=== PATIENT | female | born 1980 | race Caucasian/White ===

== ENCOUNTER → 2016-12-16 | Outpatient (CLI) | payer BC | END | disposition home or self-care (01) | LOC: C.PAPS 16:18 | PROVIDERS: ATTEND Physician Assistant | DX: Z01.419 Encounter for gynecological examination (general) (routine) without abnormal findings (principal) ==

== ENCOUNTER → 2017-09-22 | Outpatient (CLI) | payer OTHER | END | disposition home or self-care (01) | LOC: C.LAB1850 09:29 | PROVIDERS: ATTEND Obstetrics & Gynecology | DX: N91.2 Amenorrhea, unspecified (principal) ==

== ENCOUNTER 2019-07-23 07:40 | Inpatient (IN) ==
[2019-07-23] MEDS ORDERED: OXYTOCIN 30 UNITS/500 ML BAG IV PRN ×3 (07:59→18:34)
[2019-07-23 08:36] LABS: Hematocrit (blood only) 33.1 % (37-47); Hemoglobin 11.6 g/dL (12.0-16.0); Mean Corpuscular Volume 91.2 fL (80-100); RDW Coefficient of Variation 13.9 % (11.5-14.5); RDW Standard Deviation 45.4 fL (36.4-46.3); Red Blood Count 3.63 M/uL (4.2-5.4); White Blood Count 7.57 K/uL (4.8-10.8)
[2019-07-23 09:04] LABS: Mean Platelet Volume 11.1 fL (7.4-10.4); Platelet Count 98 K/uL (130-400)
[2019-07-23 09:07] LABS: Platelet Estimate Decreased (Normal)
[2019-07-23] MEDS: LACTATED RINGER'S 1,000 ML IV PRN ×3 (09:09→17:03)
--- NOTE | 2019-07-23 09:21 | History & Physical Report ---
Date of Service July 23, 2019 Assessment & Plan (1) : 38 yo @ 39.1 here for IOL complicated by supervision of elderly multigravida, thrombocytopenia, and elevated blood pressure - admits, IV, labs - Pitocin, continue to augment as needed Labs: GBS negative, Rh - SVE: 3cm, 50%, -2, mid, moderate Elevated BP @ 165/91 - CMP - continue to monitor Thrombocytopenia - platelet counts this AM Fetus - FHTS: category 1 - continue monitoring - EFW: 7-8 lbs History of Present Illness Chief Complaint: IOL Primary Care Provider: Justin Cuenca MD Magy Teran is a 38 year old at 39 weeks 1 day complicated by supervision of elderly multigravida with history of thrombocytopenia. She has baseline low platelets at around 120. She had low platelets with her son who is 9 years old and mildly low platelets with her daughter who is 11 years old. She is taking iron for anemia. She was also taking Prilosec for reflux which has been well controlled and stopped taking medication one week prior. She had some pain in her right upper quadrant that is lightning seven like, tender to palpation and occurs when she is rolling. She has had contractions that started to increase last night. She has not had loss of fluid. She did have some bleeding since last week for one day that has resolved. She lost some mucus. She has good movement. She plans to breastfeed. pSHx.: wisdom teeth, tonsils Meds.: PNV, iron, Prilosec @ 1 week Allergies: denies Allergies Allergy/AdvReac Type Severity Reaction Status Date / Time No Known Drug Allergies Allergy Verified 07/17/19 09:02 Home Medications Home Medications Medication Instructions Recorded Confirmed Type PNV cmb#95-ferrous fumarate-FA 1 tab PO DAILY 07/23/19 07/23/19 History [] ferrous sulfate [iron] 325 mg PO DAILY 07/23/19 07/23/19 History omeprazole magnesium [Prilosec OTC] 20 mg PO DAILY 07/23/19 07/23/19 History Patient History Medical History Encounter for anatomic survey (Inactive) History of thrombocytopenia Surgical History S/P tonsillectomy S/P wisdom tooth extraction Family History Mother Diabetes Heart disease Father Heart disease Hypertension Dyslipidemia Kidney disease Thrombocytopenia Social History Preferred Language: Chinese 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 Feels Safe at Home: Yes Safety Concerns: Feels Safe At This Time Smoking Status: Never smoker Hx Alcohol Use: No Hx Substance Use: No OB History - 10 yo female term complicated by platelet count of 60,000. Vaginal delivery. - 8 yo male uncomplicated term vaginal delivery Review of Systems Denies fever, chills, sweats Denies shortness of breath, difficulty breathing, chest pain, palpitations, chest pressure. Denies dysuria. Denies headache. Denies: double vision, lower extremity swelling Physical Exam Physical Exam: General: Alert, oriented. No acute distress. Cardiac: Regular rate and rhythm, no murmurs/rubs/gallops. Respiratory: Clear to auscultation anterior and posteriorly, no wheezes/rales/rhonchi. No increased work of breathing. Symmetrical chest rise. No respiratory distress. Abdomen: Gravid, Vertex, Bowel sounds present. Lower Extremities: No lower extremity edema or swelling. No deep calf pain. Dunia's negative bilaterally. SVE: 3cm, 50%, -2, mid, moderate Results & Data Vital Signs (Past 12 Hours) Vital Signs Temp Pulse Resp BP 07/23/19 09:08 97 H 142/92 H 07/23/19 08:52 89 144/94 H 07/23/19 07:59 36.7 C 85 20 139/86 07/23/19 07:49 36.7 C 85 20 139/86 Monitoring External Monitor Category 1 - baseline rate 150 - moderate variability - no early decelerations, no late decelerations, no variable decelerations Tocometry - contractions q3-4 minutes Supervising Physician Co-Signing Physician Notes Resident Physician Supervision Note: I interviewed and examined the patient. Discussed with Dr. Doe and agree with findings and plan as documented in the note. Any exceptions or clarifications are listed here: Patient is a 38yowf with iup at 39 + weeks who presents for elective induction. Has hx of gestational TCP in previous two pregnancies. Patient desires controlled induction. complicated by ama with reassuring testing. Fetus category one. Cervix favorable. Pitocin induction, then arom. plts are 98K today and spoke with anesthesia who is ok with proceeding with epidural. Anticipate . Documented By: Yolanda Loera MD, FACOG Resident Activity Tracking Resident Involvement: Resident Care Provided Care Provided: OB Delivery
[2019-07-23 10:05] LABS: Albumin Level 2.6 gm/dl (3.4-5.0); BUN Creatinine Ratio 11.8 (10-20); Bilirubin,Total 0.4 mg/dl (0.2-1); Calcium 8.7 mg/dl (8.5-10.1); Creatinine Clr Calc Pharmacy 106.7 ml/min; Est GFR (African American) 118.3; Est GFR (Non-African American) 102.1; Potassium 3.6 mmol/L (3.5-5.1)
[2019-07-23 10:07] LABS: Albumin Globulin Ratio 0.7 (0.9-2); Globulin 3.6 gm/dl (2.5-4.0); Total Protein 6.2 gm/dl (6.4-8.2)
[2019-07-23] MEDS ORDERED: fentaNYL citrate 100 MCG/2 ML VIAL ONE (11:50)
[2019-07-23] MEDS ORDERED: BUPIVACAINE 0.25% 30 ML VIAL ONE (11:50)
[2019-07-23] MEDS ORDERED: ePHEDrine sulfate 50 MG/ML AMP ONE (11:50)
[2019-07-23] MEDS ORDERED: fentaNYL 2MCG/ML ROPIV 1.25MG/ML 100 ML BAG EPI ONE (11:51)
--- NOTE | 2019-07-23 12:10 | Anesthesiology Consultation ---
Date of Service July 23, 2019 Assessment & Plan (1) Encounter for pre-operative examination: Chart Review Chart Review: Acceptable Risk for Labor Epidural History Height/Weight Height: 5 ft 9 in Weight: 78.018 kg Allergies Allergy/AdvReac Type Severity Reaction Status Date / Time No Known Drug Allergies Allergy Verified 07/17/19 09:02 Medications Home Medications Medication Instructions Recorded Confirmed Last Taken PNV cmb#95-ferrous fumarate-FA 1 tab PO DAILY 07/23/19 07/23/19 07/23/19 07:00 [] ferrous sulfate [iron] 325 mg PO DAILY 07/23/19 07/23/19 07/22/19 20:00 omeprazole magnesium [Prilosec OTC] 20 mg PO DAILY 07/23/19 07/23/19 07/16/19 08:00 Active Medications Generic Name Dose Route Start Last Admin Trade Name Freq PRN Reason Stop Dose Admin Lactated Ringer's 1,000 mls @ 125 mls/hr 07/23/19 07:59 07/23/19 09:09 Lr IV 07/25/19 07:58 125 mls/hr .Q8H PRN Administration L&D Protocol Protocol Oxytocin 30 units in 500 mls @ 8 mls/hr 07/23/19 07:59 07/23/19 11:20 Pitocin IV 07/25/19 07:58 0.48 units/hr .Q24H PRN 8 mls/hr Labor Induction/Augmentation Titration Protocol 0.48 UNITS/HR Past Medical History Medical History Encounter for anatomic survey (Inactive) History of thrombocytopenia Past Family History Family History Mother Diabetes Heart disease Father Heart disease Hypertension Dyslipidemia Kidney disease Thrombocytopenia Past Surgical History Surgical History S/P tonsillectomy S/P wisdom tooth extraction Social History Smoking Status: Never smoker Hx Alcohol Use: No Hx Substance Use: No Physical Exam Vital Signs Last Vital Signs Temp 36.7 C 07/23/19 07:59 Pulse 75 07/23/19 10:53 Resp 20 07/23/19 10:53 BP 129/78 07/23/19 10:53 Testing Laboratory Results 07/23/19 08:14 07/23/19 09:13
[2019-07-23] MEDS ORDERED: ATROPINE SULFATE 0.1 MG/ML 10ML SYR IV PRN (12:38)
[2019-07-23] MEDS ORDERED: ePHEDrine sulfate 50 MG/ML AMP IV PRN ×2 (12:38)
[2019-07-23] MEDS ORDERED: NALOXONE HCL 1 MG in SODIUM CHLORIDE 0.9% 1000ML 1,000 ML IV PRN (12:38)
[2019-07-23] MEDS ORDERED: NALOXONE HCL 0.4 MG/1 ML VIAL/CARP IV PRN (12:38)
[2019-07-23] MEDS ORDERED: fentaNYL 2MCG/ML ROPIV 1.25MG/ML 100 ML BAG EPI PRN (12:38)
[2019-07-23] MEDS ORDERED: ONDANSETRON INJ 2 MG/ML 2 ML VIAL IV PRN (12:38)
--- NOTE | 2019-07-23 13:43 | Labor Progress Brief Note ---
Date of Service July 23, 2019 Subjective comfortable with epidural Assessment & Plan (1) Supervision of elderly multigravida: continue current plan, fetus category one. anticipate . Physical Exam Constitutional: WD/WN, vitals as above Psychiatric: A+Ox3, euthymic affect Genitourinary: cx--3.5/75/-2 arom--copious clear toco--q2-4min, pit at 4 efm--125 with mod variability, accels to 150s, no decels Results & Data Vital Signs (Past 12 Hours) Vital Signs Temp Pulse Resp BP Pulse Ox 07/23/19 13:34 82 100 07/23/19 13:32 77 137/88 07/23/19 13:29 68 100 07/23/19 13:24 84 97 07/23/19 13:19 71 100 07/23/19 13:14 84 100 07/23/19 13:12 74 156/88 H 07/23/19 13:10 69 89 L 07/23/19 13:09 66 99 07/23/19 13:07 78 142/82 H 07/23/19 13:04 71 100 07/23/19 13:02 68 141/80 H 07/23/19 12:59 83 100 07/23/19 12:57 71 144/77 H 07/23/19 12:54 76 100 07/23/19 12:51 77 152/84 H 07/23/19 12:49 78 100 07/23/19 12:48 86 165/88 H 07/23/19 12:45 75 140/83 07/23/19 12:44 84 100 07/23/19 12:42 78 147/91 H 07/23/19 12:39 81 145/82 H 100 07/23/19 12:36 72 150/84 H 07/23/19 12:34 68 100 07/23/19 12:33 68 155/86 H 07/23/19 12:29 73 100 07/23/19 12:24 74 100 07/23/19 12:19 69 99 07/23/19 10:53 75 20 129/78 07/23/19 10:24 76 154/91 H 07/23/19 09:53 75 20 159/90 H 07/23/19 09:39 81 150/91 H 07/23/19 09:24 81 165/91 H 07/23/19 09:08 97 H 142/92 H 07/23/19 08:52 89 20 144/94 H 07/23/19 07:59 36.7 C 85 20 139/86 07/23/19 07:49 36.7 C 85 20 139/86 Coding Level of Care Code None Diagnoses Supervision of elderly multigravida O09.529
--- NOTE | 2019-07-23 15:20 | Labor Progress Brief Note ---
Date of Service July 23, 2019 Subjective comfortable Assessment & Plan (1) Elective induction of labor planned: Fetus category 2, but very reassuring. Suspect going to go pretty quickly at this point. Will continue to monitor closely. anticipate . Physical Exam Constitutional: WD/WN, vitals as above Psychiatric: A+Ox3, euthymic affect Genitourinary: cx--5/90/-2, tight against cervix toco--q2-3min, pit at 12 efm--130s with mod variability, early/variables with some contractions Results & Data Vital Signs (Past 12 Hours) Vital Signs Temp Pulse Resp BP Pulse Ox 07/23/19 15:11 76 100 07/23/19 15:07 72 92 07/23/19 15:06 72 96 07/23/19 15:03 65 138/85 07/23/19 15:01 64 100 07/23/19 14:56 67 100 07/23/19 14:53 64 90 07/23/19 14:51 79 99 07/23/19 14:48 75 137/85 07/23/19 14:46 68 100 07/23/19 14:41 70 100 07/23/19 14:40 83 92 07/23/19 14:36 69 100 07/23/19 14:32 66 160/91 H 88 L 07/23/19 14:31 67 100 07/23/19 14:26 69 100 07/23/19 14:21 72 100 07/23/19 14:19 73 87 L 07/23/19 14:18 65 133/80 07/23/19 14:16 66 99 07/23/19 14:11 69 100 07/23/19 14:06 74 100 07/23/19 14:01 69 125/81 100 07/23/19 13:56 69 100 07/23/19 13:51 68 100 07/23/19 13:49 65 123/77 07/23/19 13:46 65 100 07/23/19 13:41 68 100 07/23/19 13:34 82 100 07/23/19 13:32 77 137/88 07/23/19 13:29 68 100 07/23/19 13:24 84 97 07/23/19 13:19 71 100 07/23/19 13:14 84 100 07/23/19 13:12 74 156/88 H 07/23/19 13:10 69 89 L 07/23/19 13:09 66 99 07/23/19 13:07 78 142/82 H 07/23/19 13:04 71 100 07/23/19 13:02 68 141/80 H 07/23/19 12:59 83 100 07/23/19 12:57 71 144/77 H 07/23/19 12:54 76 100 07/23/19 12:51 77 152/84 H 07/23/19 12:49 78 100 07/23/19 12:48 86 165/88 H 07/23/19 12:45 75 140/83 07/23/19 12:44 84 100 07/23/19 12:42 78 147/91 H 07/23/19 12:39 81 145/82 H 100 07/23/19 12:36 72 150/84 H 07/23/19 12:34 68 100 07/23/19 12:33 68 155/86 H 07/23/19 12:29 73 100 07/23/19 12:24 74 100 07/23/19 12:19 69 99 07/23/19 10:53 75 20 129/78 07/23/19 10:24 76 154/91 H 07/23/19 09:53 75 20 159/90 H 07/23/19 09:39 81 150/91 H 07/23/19 09:24 81 165/91 H 07/23/19 09:08 97 H 142/92 H 07/23/19 08:52 89 20 144/94 H 07/23/19 07:59 36.7 C 85 20 139/86 07/23/19 07:49 36.7 C 85 20 139/86 Coding Level of Care Code None Diagnoses Elective induction of labor planned
--- NOTE | 2019-07-23 17:12 | Labor Progress Brief Note ---
Date of Service July 23, 2019 Subjective starting to feel some contractions Assessment & Plan (1) Elective induction of labor planned: Moving nicely, fetus reassuring. will redose epidural so she can labor down. anticipate . Physical Exam Constitutional: WD/WN, vitals as above Psychiatric: A+Ox3, euthymic affect Genitourinary: cx--ant lip, 0 bloody show toco--q2min, pit at 12 efm--140s with mod variability, occasional early Results & Data Vital Signs (Past 12 Hours) Vital Signs Temp Pulse Resp BP Pulse Ox 07/23/19 17:06 89 97 07/23/19 17:02 79 157/89 H 07/23/19 17:01 74 100 07/23/19 16:56 81 100 07/23/19 16:51 75 100 07/23/19 16:46 80 153/98 H 100 07/23/19 16:41 72 100 07/23/19 16:36 71 100 07/23/19 16:33 71 149/87 H 07/23/19 16:31 80 100 07/23/19 16:26 70 100 07/23/19 16:21 73 100 07/23/19 16:16 70 144/87 H 100 07/23/19 16:11 70 100 07/23/19 16:06 70 100 07/23/19 16:03 67 146/86 H 07/23/19 16:01 68 100 07/23/19 15:56 67 100 07/23/19 15:51 65 100 07/23/19 15:49 91 H 91 07/23/19 15:46 70 144/88 H 100 07/23/19 15:41 69 100 07/23/19 15:36 63 100 07/23/19 15:32 36.6 C 67 20 144/83 H 07/23/19 15:31 66 100 07/23/19 15:26 69 100 07/23/19 15:21 67 100 07/23/19 15:19 73 158/86 H 94 07/23/19 15:16 76 94 07/23/19 15:11 76 100 07/23/19 15:07 72 92 07/23/19 15:06 72 96 07/23/19 15:03 65 138/85 07/23/19 15:01 64 100 07/23/19 14:56 67 100 07/23/19 14:53 64 90 07/23/19 14:51 79 99 07/23/19 14:48 75 137/85 07/23/19 14:46 68 100 07/23/19 14:41 70 100 07/23/19 14:40 83 92 07/23/19 14:36 69 100 07/23/19 14:32 66 160/91 H 88 L 07/23/19 14:31 67 100 07/23/19 14:26 69 100 07/23/19 14:21 72 100 07/23/19 14:19 73 87 L 07/23/19 14:18 65 133/80 07/23/19 14:16 66 99 07/23/19 14:11 69 100 07/23/19 14:06 74 100 07/23/19 14:01 69 125/81 100 07/23/19 13:56 69 100 07/23/19 13:51 68 100 07/23/19 13:49 65 123/77 07/23/19 13:46 65 100 07/23/19 13:41 68 100 07/23/19 13:34 82 100 07/23/19 13:32 77 137/88 07/23/19 13:29 68 100 07/23/19 13:24 84 97 07/23/19 13:19 71 100 07/23/19 13:14 84 100 07/23/19 13:12 74 156/88 H 07/23/19 13:10 69 89 L 07/23/19 13:09 66 99 07/23/19 13:07 78 142/82 H 07/23/19 13:04 71 100 07/23/19 13:02 68 141/80 H 07/23/19 12:59 83 100 07/23/19 12:57 71 144/77 H 07/23/19 12:54 76 100 07/23/19 12:51 77 152/84 H 07/23/19 12:49 78 100 07/23/19 12:48 86 165/88 H 07/23/19 12:45 75 140/83 07/23/19 12:44 84 100 07/23/19 12:42 78 147/91 H 07/23/19 12:39 81 145/82 H 100 07/23/19 12:36 72 150/84 H 07/23/19 12:34 68 100 07/23/19 12:33 68 155/86 H 07/23/19 12:29 73 100 07/23/19 12:24 74 100 07/23/19 12:19 69 99 07/23/19 10:53 75 20 129/78 07/23/19 10:24 76 154/91 H 07/23/19 09:53 75 20 159/90 H 07/23/19 09:39 81 150/91 H 07/23/19 09:24 81 165/91 H 07/23/19 09:08 97 H 142/92 H 07/23/19 08:52 89 20 144/94 H 07/23/19 07:59 36.7 C 85 20 139/86 07/23/19 07:49 36.7 C 85 20 139/86 Coding Level of Care Code None Diagnoses Elective induction of labor planned
--- NOTE | 2019-07-23 18:19 | Delivery Summary ---
Vaginal Delivery Summary Date of Service July 23, 2019 Vaginal Delivery Summary Pre-operative Diagnosis: at 39 weeks elective induction gestational tcp ama Post-operative Diagnosis: same bradycardia with pushing and slow return to baseline Procedure: pitocin induction epidural arom vavd second degree laceration with repair EBL: 300cc Anesthesia: epidural Procedure: The patient pushed with good effort from +2 station. There was bradycardia to the 60s with several contractions. So decision was made for outlet vacuum. Explained to the patient and verbal consent obtained. The patient pushed for to deliver a viable male infant in lesa position. The was then delivered without difficulty. The baby was vigorous. The nose and mouth were bulb suctioned and the infant was placed in the maternal abdomen for drying and attention. Cord was clamped and cut at one minute of life. Cord blood and segment obtained. Placenta delivered spontaneous, intact with a three vessel cord. Cervix/sulci/rectum were intact. A second degree perineal laceration was repaired in the normal standard fashion. Hemostasis obtained with dilute pitocin and fundal massage. Apgars were 8/9. Mother and baby doing well at the end of the delivery. [facility] Vaginal Delivery Charge Vaginal Delivery Codes: 72331 global code for the antepartum, delivery, and post-
[2019-07-23] MEDS ORDERED: HYDROCORTISONE ACETATE 25 MG SUPP PR PRN (18:34)
[2019-07-23] MEDS ORDERED: OXYCODONE/ACETAMINOPHEN 5mg/325mg TAB PO PRN (18:34)
[2019-07-23] MEDS ORDERED: DIPHTHERIA/TETANUS/PERTUSSIS 0.5 ML SYR/VIAL IM ONE (18:34)
[2019-07-23] MEDS ORDERED: ACETAMINOPHEN 325 MG TAB PO PRN (18:34)
[2019-07-23] MEDS ORDERED: BENZOCAINE 20% AER SPR 82.5 GM CAN EXT PRN (18:34)
[2019-07-23] MEDS ORDERED: bisacodyL 10 MG SUPP PR PRN (18:34)
[2019-07-23] MEDS ORDERED: SUPERCREAM 0.870% 15 GM JAR EXT PRN (18:34)
--- NOTE | 2019-07-23 18:35 | Anesthesia Procedure Note ---
Date of Service July 23, 2019 Anesthesia Post Epidural Note Vital Signs Vital Signs: Temp Pulse Resp BP Pulse Ox 36.6 C 96 H 20 131/80 100 07/23/19 15:32 07/23/19 18:32 07/23/19 15:32 07/23/19 18:32 07/23/19 17:56 Pain Intensity Bilateral Abdomen: Pain Intensity: 5 Notes Mental Status: alert / awake / arousable and participated in evaluation Nausea / Vomiting: adequately controlled Pain: adequately controlled Airway Patency, RR, SpO2: stable & adequate BP & HR: stable & adequate Hydration State: stable & adequate Neuraxial Anesthesia: was administered and sensory block is resolving Anesthetic Complications: no major complications apparent Epidural: Removed without complications and With tip intact
[2019-07-23] MEDS: DOCUSATE SODIUM 100 MG CAP PO SCH (21:00)
[2019-07-23] MEDS: IBUPROFEN 600 MG TAB PO PRN (21:46)
[2019-07-24] MEDS: IBUPROFEN 600 MG TAB PO PRN ×4 (02:07→16:23)
[2019-07-24 05:52] LABS: Hematocrit (blood only) 32.8 % (37-47); Hemoglobin 11.2 g/dL (12.0-16.0)
--- NOTE | 2019-07-24 06:19 | Obstetrical Progress Note ---
Date of Service July 24, 2019 Assessment & Plan Admission and Anticipated Discharge Date Admission Date: July 23, 2019 38 yo s/p elective induced VD w/ outlet vacuum for non reassuring heart tones; complicated by AMA and thrombocytopenia w/ platelets prior to delivery of 98 - PPD# 1 - GBS -, Rh -, baby A- - Feels well today. Eating well, voiding well, ambulating well. - Pain well controlled. - Routine post care - After discharge will have 6 week followup with Luz Maria. Supervising Physician Co-Signing Physician Notes Resident Physician Supervision Note: I interviewed and examined the patient. Discussed with Dr. Doe and agree with findings and plan as documented in the note. Any exceptions or clarifications are listed here: PPD 1 doing well. Desires d/c home later today. d/c instructions reviewed. Documented By: Yolanda Loera MD, FACOG Subjective Magy Teran is doing well this morning, she is walking, voiding, passing gas and eating a regular diet w/o nausea or vomiting. Bleeding is more than a heavy period. is going, "good". pain is 2/10. She did not have any questions this morning. Review of Systems Review of Systems: Denies fever, chills, sweats Denies shortness of breath, difficulty breathing, chest pain, palpitations, chest pressure. Denies breast pain. Denies dysuria. Denies headache. Physical Exam Physical Exam: General: Alert, oriented. No acute distress. Cardiac: Regular rate and rhythm, no murmurs/rubs/gallops. Respiratory: Clear to auscultation anterior and posteriorly, no wheezes/rales/rhonchi. No increased work of breathing. Symmetrical chest rise. No respiratory distress. Abdomen: Soft, nontender, nondistended. Bowel sounds present. Uterus: Uterine fundus firm, palpable 1 cm below umbilicus. Lower Extremities: No lower extremity edema or swelling. No deep calf pain. Dunia's negative bilaterally. Results & Data ([facility]) Vital Signs (Past 12 Hours) Vital Signs Temp Pulse Pulse Resp BP BP Pulse Ox 07/24/19 03:45 36.8 C 69 18 132/82 98 07/24/19 00:00 36.6 C 74 18 131/75 98 07/23/19 21:15 36.7 C 84 18 145/85 H 100 07/23/19 20:46 95 H 138/80 07/23/19 20:31 36.7 C 82 18 146/81 H 07/23/19 20:16 82 148/74 H 07/23/19 20:02 88 18 148/75 H 07/23/19 19:46 78 141/65 H 07/23/19 19:31 84 20 148/60 H 07/23/19 19:16 85 20 146/78 H 07/23/19 19:01 80 20 138/78 07/23/19 18:46 81 20 135/73 07/23/19 18:32 96 H 18 131/80 07/23/19 18:20 88 123/71 Resident Activity Tracking Resident Involvement: Resident Care Provided Care Provided: OB Delivery
[2019-07-24] MEDS ORDERED: PRENATAL VITAMIN 1 TAB PO SCH (08:00)
[2019-07-24] MEDS: DOCUSATE SODIUM 100 MG CAP PO SCH (08:25)
[2019-07-24] MEDS ORDERED: bisacodyL 5 MG TABEC PO SCH (20:00)
== END 2019-07-24 20:55 | disposition home or self-care (01) | DRG 805 ==
LOC: 4S1 07:40 → 4S2 21:30